=== PATIENT | female | born 1990 | race African-American/Black ===

== ENCOUNTER 2018-07-17 22:42 | Emergency (ER) | payer OTHER ==
--- NOTE | 2018-07-17 23:49 | ED Physician Documentation ---
PD HPI BACK PAIN - Stated complaint Stated Complaint: BACK PX - Chief complaint Chief Complaint: General - History obtained from History obtained from: Patient - History of Present Illness Timing - onset: How many days ago (10) Timing - duration: Days (10) Timing - details: Gradual onset, Still present (She has had intermittent pain in the right gluteal and hip area over the last 10 days but has gotten consistently worse to the point of difficulty walking and changing position in the last day or 2. She had not taken any medicines for it. She is 21 weeks and is concerned about any medications. She denies any redness sores or rash. She has not had a fever or chills. She has had a previous injury of her left knee and along with the feels that her gait is off and had because the initial pain in the low back and hip.) Location: Lower, Right (actually gluteal/posterior hip area and only a little to the low back.) Quality: Pain, Sharp Associated symptoms: No: Fever, Weakness, Numbness Improves with: Rest Worsened by: Movement (of the right hip, with changing position, walking and palpation) Contributing factors: No: Lifting, Twisting Similar symptoms before: Has not had sx before Review of Systems Constitutional: denies: Fever, Chills, Myalgias Nose: denies: Rhinorrhea / runny nose, Congestion Throat: denies: Sore throat Respiratory: denies: Cough GI: denies: Nausea, Vomiting, Diarrhea : reports: Now EGA (21). denies: Discharge, Irregular menses Skin: denies: Rash, Lesions Musculoskeletal: reports: Extremity pain Neurologic: denies: Focal weakness, Numbness PD PAST MEDICAL HISTORY - Past Medical History Past Medical History: No Cardiovascular: None Respiratory: None Neuro: None Endocrine/Autoimmune: None LUGGER: None - Past Surgical History Past Surgical History: Yes Ortho: Other - Present Medications Home Medications: Ambulatory Orders Medication Instructions Recorded Confirmed Pnv95/Ferrous Fumarate/FA 1 each PO 07/17/18 [ Tablet] Dexamethasone [Decadron] 4 mg PO DAILY #5 tablet 07/18/18 Naproxen 375 mg PO BID #20 tablet 07/18/18 - Allergies Allergies/Adverse Reactions: Allergies Allergy/AdvReac Type Severity Reaction Status Date / Time No Known Drug Allergies Allergy Verified 07/17/18 22:56 - Social History Does the pt smoke?: No Smoking Status: Never smoker Does the pt drink ETOH?: No Does the pt have substance abuse?: No - Immunizations Immunizations are current?: Yes PD ED PE NORMAL - Vitals Vital signs reviewed: Yes - General General: Alert and oriented X 3, Well developed/nourished, Other (appears in pain with ROM of the right hip and low back. ) - Cardiac Cardiac: RRR, No murmur - Respiratory Respiratory: Clear bilaterally - Abdomen Abdomen: Normal bowel sounds, Soft, Non tender, Non distended, Other (gravid with fundus to umbilicus. ) - Female Female : Deferred - Back Back: No CVA TTP, No spinal TTP - Derm Derm: Normal color, Warm and dry, No rash - Extremities Extremities: No edema, No calf tenderness / cord, Other (right gluteal area with tenderness in muscle. U/S showed no obvious cyst/abscess. Skin is pink and warm without rash. Palpation is very tender overlying the posterior aspect of the joint. U/S bedside I felt showed some fluid in joint.) Results - Vitals Vitals: Oxygen O2 Source Room air Procedures - Bedside sono Bedside sono by EMP: Normal fetus movement and heart beat. Right hip with small effusion. PD MEDICAL DECISION MAKING - ED course Complexity details: considered differential (I think she is having inflammation in the joint. This may have resulted from gait and position changes from being and with her left knee prior injury. She does not have any fever and there is no rash or redness. I did not see a need for tapping the joint would go with it as an inflammatory process.), d/w patient Departure - Departure Disposition: 01 Home, Self Care Clinical Impression: Synovitis of hip Condition: Stable Record reviewed to determine appropriate education?: Yes Instructions: ED Synovitis Toxic Follow-Up: Jose L Chaudhary ARNP [Primary Care Provider] - Prescriptions: Dexamethasone [Decadron] 4 mg PO DAILY #5 tablet Naproxen 375 mg PO BID #20 tablet Comments: Use Tylenol 650 mg every 4-6 hours if needed for pain. At this point in your it would be okay to use NSAIDs such as naproxen twice daily for 7-10 days. Do not use these after 28-30 weeks of . You could also use steroid L anti-inflammatories such as Decadron daily for the next 5 days. I think either or both of these would be beneficial for your pain that you are having as it sounds likely to be some inflammation to the muscle and hip joint. I understand not wanting to take medication during but these would be safe at this point. Ice or cold to the area can help. Consider massage as well. Follow-up with your primary care if not improved over the next few days. Discharge Date/Time: 07/18/18 00:30
[2018-07-18] MEDS ORDERED: ACETAMINOPHEN 500 MG TABLET PO STA (00:18)
[2018-07-18 00:29] VITALS: BP 96/56
== END 2018-07-18 00:30 | disposition home or self-care (01) ==
LOC: ED 22:42
DX: O26.892 Other specified pregnancy related conditions, second trimester (principal); M65.88 Other synovitis and tenosynovitis, other site; Z3A.21 21 weeks gestation of pregnancy
CPT/HCPCS: 99283; A9270

== ENCOUNTER 2019-11-12 21:13 | Emergency (ER) | payer OTHER ==
[2019-11-12 21:21] VITALS: BP 114/70
--- NOTE | 2019-11-12 21:34 | ED Physician Documentation ---
PD HPI LOWER EXT INJURY - Stated complaint Stated Complaint: KNEE PX - Chief complaint Chief Complaint: Trauma Ext - History obtained from History obtained from: Patient (She is been having trouble with the right knee for the last 4 months. Presumed meniscus injury. She was in physical therapy. The pain is worse now, also with some swelling. There was no specific injury.) - Additional information Additional information: She has a referral in an order for an MRI, she is just waiting for the phone call. She presented on Friday night hoping to get the MRI done. Was discussed that we do not have this service available in-house 10/02. Review of Systems Constitutional: reports: Reviewed and negative Nose: reports: Reviewed and negative Throat: reports: Reviewed and negative Cardiac: reports: Reviewed and negative PD PAST MEDICAL HISTORY - Past Medical History Cardiovascular: None Respiratory: None Neuro: None Endocrine/Autoimmune: None [employer]PER[employer]: None - Past Surgical History Past Surgical History: Yes Ortho: Other - Present Medications Home Medications: Ambulatory Orders Medication Instructions Recorded Confirmed Pnv No.95/Ferrous Fum/Folic AC 1 each PO 07/17/18 [ Tablet] Naproxen 375 mg PO BID #20 tablet 07/18/18 dexAMETHasone [Decadron] 4 mg PO DAILY #5 tablet 07/18/18 - Allergies Allergies/Adverse Reactions: Allergies Allergy/AdvReac Type Severity Reaction Status Date / Time No Known Drug Allergies Allergy Verified 11/12/19 21:21 - Social History Does the pt smoke?: No Smoking Status: Never smoker Does the pt drink ETOH?: No Does the pt have substance abuse?: No - Immunizations Immunizations are current?: Yes PD ED PE NORMAL - Vitals Vital signs reviewed: Yes - General General: Alert and oriented X 3, No acute distress - Extremities Extremities: Other (There is a modest effusion of the right knee, some tendern ess along the medial joint line. Pain but no laxity with MCL testing. ACL and PCL seem tight. She does have pain with grind testing.) - Neuro Neuro: Alert and oriented X 3, Normal speech Results - Vitals Vitals: Vital Signs - 24 hr 11/12/19 21:15 Temperature 36.3 C L Heart Rate 88 Respiratory 16 Rate Blood Pressure 114/70 O2 Saturation 100 Oxygen O2 Source Room air PD MEDICAL DECISION MAKING - ED course ED course: She declines pain medications because she is breast-feeding. Departure - Departure Disposition: 01 Home, Self Care Clinical Impression: Internal derangement of right knee Condition: Good Record reviewed to determine appropriate education?: Yes Instructions: ED Meniscal Injury Knee Poss Comments: The phone number for the scheduling desk for diagnostic imaging is [phone] extension [phone].
--- NOTE | 2019-11-12 22:06 | XRAY Report ---
Reason: knee pain Procedure Date: 11/12/2019 Accession Number: [id number] / [id number] Procedure: XR - Knee 4 View RT CPT Code: Final Report FULL RESULT: EXAM: RIGHT KNEE RADIOGRAPHY EXAM DATE: 11/12/2019 09:27 PM. CLINICAL HISTORY: Knee pain. COMPARISON: None. TECHNIQUE: 4 views. FINDINGS: Bones: Normal. No fractures or bone lesions. Joints: Normal. No effusion. No subluxations. Soft Tissues: Normal. No soft tissue swelling. IMPRESSION: Normal knee radiography. [facility]
== END 2019-11-12 22:19 | disposition home or self-care (01) ==
LOC: ED 21:13
DX: M25.461 Effusion, right knee (principal); M23.91 Unspecified internal derangement of right knee
CPT/HCPCS: 99283

== ENCOUNTER 2019-11-24 07:29 | Outpatient (CLI) | payer OTHER ==
--- NOTE | 2019-11-24 09:44 | MRI Report ---
Reason: RIGHT KNEE PAIN Procedure Date: 11/24/2019 Accession Number: [id number] / [id number] Procedure: MRI - Knee RT W/O CPT Code: Final Report FULL RESULT: EXAM: RIGHT KNEE MRI WITHOUT CONTRAST EXAM DATE: 11/24/2019 08:33 AM. CLINICAL HISTORY: RIGHT KNEE PAIN. COMPARISON: KNEE 4 VIEW RT 11/12/2019 9:27 PM. TECHNIQUE: Multiplanar, multisequence T1-weighted and fluid-sensitive sequences of the knee without contrast. Other: None. FINDINGS: Ligaments: The anterior cruciate, posterior cruciate, medial collateral, and lateral collateral ligament are normal. Patellofemoral compartment: Patellofemoral cartilage is normal. No patellofemoral osteoarthritis. Patellofemoral alignment is anatomic. The distal quadriceps and patellar tendons are normal. The medial and lateral patellofemoral retinacula are normal. Elongated medial plica extends slightly into the medial patellofemoral joint space. Medial compartment: Indistinct irregular tearing of the medial meniscus involving the posterior horn and peripheral body predominantly extends to the inferior articular surface though there is a tiny region of superior articular surface extension in the midportion of the posterior horn. The anterior horn is intact. Medial compartment cartilage is preserved. Subchondral marrow edema along the posterior and medial periphery of the tibial plateau and along the medial periphery of the medial femoral condyle is likely reactive to the adjacent meniscal tears. No significant osteoarthritis. Lateral compartment: The lateral meniscus is normal. Lateral compartment cartilage is normal. No lateral compartment osteoarthritis. Soft tissues: No significant knee effusion. A tiny popliteal cyst is present. IMPRESSION: 1. Irregular nondisplaced tearing of the posterior horn and peripheral body of the medial meniscus with mild adjacent reactive marrow edema. Medial compartment cartilage is preserved. 2. Normal patellofemoral and lateral compartments. 3. Intact ligaments. [facility]
== END 2019-11-24 07:30 | disposition home or self-care (01) ==
LOC: DI 07:29
PROVIDERS: ATTEND Nurse Practitioner Family
DX: S83.241A Other tear of medial meniscus, current injury, right knee, initial encounter (principal); S83.221A Peripheral tear of medial meniscus, current injury, right knee, initial encounter